=== PATIENT | female | born 1950 | race Caucasian/White ===

== ENCOUNTER 2016-10-13 11:58 | Observation (INO) | payer MEDICARE, BC ==
--- NOTE | 2016-10-12 23:19 | HP ---
HISTORY AND PHYSICAL/GASTROENTEROLOGY CONSULTATION DATE: DATE OF ADMISSION - ERCP : 10/13/16 CONSULTING PHYSICIAN: Adelaide Reina REASON FOR CONSULTATION: Abnormal LFTs and cystic duct and common bile duct stones seen on abdominal MRI. 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 She said she has had no particular questions or agenda at that time and she had routine blood work. These showed an elevation of LFTs with ALT 101 and alkaline phosphatase 311, (bilirubin was normal at 0.7) up from 8 normal values since 2011 in the new database. Further questioning turns up a twinge like pain in the right lateral costal area about twice a week which lasts only for few minutes. She specifies it is "not really a pain, just something I feel." There is no vomiting with it or fever. She says this has been present ever since her gallbladder was out. She has never really made a point of it. She did have an ultrasound a few months after her gallbladder was out and it showed a fatty liver. That was the last abdominal imaging study in the hospital database until this month. On 10/07/[address] of the abdomen and pelvis showed hepatic steatosis and mild intra and extrahepatic duct dilation. There is a question of something in the uncinate process of the pancreas. MRI done after that did not show any pancreatic, parenchymal, or ductal abnormality, but did document a long cystic duct stump remnant with stones in it and also a somewhat dilated common duct at 1.1 cm with stones in it. She states today that the twinge like pattern of discomfort continues to occur this year, but it is no different than it ever has been through the years. Followup labs showed ALT up to 189 and alkaline phosphatase 451. She has not had any fever or sleep disruption. Her appetite is good and she is struggling to control her weight. It stresses her out to be focused on this. She admits she does not want to know the figures and several notes refer to request not to be weighed PAST MEDICAL HISTORY: 1. Cholecystectomy, October [address] Matthews 2. Obesity. 3. Hepatic steatosis. 4. History of tremor. 5. Hypertension. 6. Depression. 7. Sleep apnea - April 2016, Dr. Samuels recommended CPAP. 8. Status post complete hysterectomy, November 1997 for endometriosis. 9. Laparoscopy in 1981 for infertility. 10. Basal cell cancer of the nose bilateral with revision planned, late November 2016. 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 She is . She had been planning on spending October and much of November in [place] then returning to have revisional surgery on her nose. REVIEW OF SYSTEMS: No history of syncope, palpitations, MD, pulmonary embolism , anticoagulation, hepatitis, or renal stones. She has had a hematuria workup by Dr Diego in the past. No history of pruritus or rash. She had atypical chest pain workup in 1995 including a 24-hour pH probe. PHYSICAL EXAMINATION GENERAL: She is a substantially overweight, middle-aged woman, in no distress. Deformities of the nose are evident bilaterally. VITAL SIGNS: Weight is 204, height 5 feet 6 inches, blood pressure 132/80. HEENT: Exam shows no icterus. Pupils are equal. Extraocular movements are normal. NECK: She had no adenopathy or bruits. LUNGS: Clear. HEART: Heart sounds are normal. BREAST: Deferred. PELVIC: Deferred. ABDOMEN: Abdomen is obese with small lap berenice scar seen. There is no hernia. There is no tenderness or mass. EXTREMITIES: Show no edema. LABORATORY DATA: Radiology review - she has stones in the cystic duct remnant (which inserts very low) and common duct on MRI. IMPRESSION: This 66-year-old woman at her regular physical exam 09/16/16 was noted to have a mostly cholestatic abnormality in LFTs. Her bilirubin is not elevated and albumin not affected so, she does not appear to be have any chronic liver disease or dysfunction from her fatty liver. Her ferritin and hepatitis C antibody are negative. She did have similar elevations briefly in 2008 around the time of her cholecystectomy and then things settled down and indeed in the [facility] database, she has 7 normal sets of these enzymes prior to the abrupt elevation noted on 09/16/16. She has no history of a new medication or new supplement and TRINA and mitochondrial antibody are negative. Thus with no pain the cause was quite obscure when first seen, though apparently has been found by the MRI which detected common duct stones. The subtle brief and apparently mild nature of her pain over the years is atypical, but probably does correlate with the stones seen. As the stones are appearing to develop significant obstructive properties, ERCP and clearing of the common duct is indicated. Whether or not this relieves her twinge like symptoms is unclear. Rarely, cystic duct stones stuck in that location can require an ERCP or surgical removal. The nature of ERCP with the use of anesthesia analogous to surgery , probable admission for observation, possibility of needing a stent and complications delaying prompt recovery up to including of in 1999 chance of were reviewed. She did not wish to hear verbally a long recitation of pluses or minuses, but did wish to review a diagram and outline with her . This will be reviewed further at the time of the procedure. [id number]/[facility] #: [id number] [facility] HOSPITALJordyn
[~2016-10-13 11:58] MED LIST: HYDROmorphone* 1 MG/ML 1 ML SYR ONE; Midazolam* 1 MG/ML 2 ML VIAL (2 MG) ONE; fentaNYL* 50 MCG/ML 2 ML VIAL (100 MCG VIAL) ONE
[2016-10-13 13:01] LABS: Hematocrit 40 % (35-47); Hemoglobin 13.7 g/dl (12.0-16.0); Mean Corpuscular HGB Conc 34 g/dl (31-36); Mean Corpuscular Hemoglobin 31 pg (27-31); Mean Corpuscular Volume 92 fL (80-97); Mean Platelet Volume 9 um3 (7.4-10.4); Red Blood Count 4.39 10^6/ul (4.0-5.4); Red Cell Distribution Width 13 % (10.5-15); White Blood Count 7.2 10^3/ul (3.5-10.8)
[2016-10-13 13:07] LABS: Comments Flag Yes
[2016-10-13 13:08] LABS: Add Diff/Slide Review? Manual Diff Added
[2016-10-13 13:17] LABS: Albumin 4.2 g/dL (3.2-5.2); BUN/Creatinine Ratio 15.1 (8-20); Calcium 9.5 mg/dL (8.6-10.3); EGFR African American 84.6 (>60); EGFR Non-African American 65.8 (>60); Globulin 3.1 g/dL (2-4); Total Bilirubin 0.6 mg/dL (0.2-1.0); Total Protein 7.3 g/dL (6.4-8.9)
[2016-10-13 13:32] LABS: Potassium 4.2 mmol/L (3.5-5.0)
[2016-10-13 13:33] LABS: Add Path Review? YES; Eosinophils % 4 % (0-6); Neutrophil % 57 % (38-83); RBC Morphology Normal (Normal); Reactive Lymph % 2 % (0-6)
[2016-10-13] MEDS ORDERED: Indomethacin SUPP(NF) 50 MG SUP PR ONE (13:44)
[2016-10-13] MEDS ORDERED: fentaNYL* 50 MCG/ML 2 ML VIAL (100 MCG VIAL) ONE (16:30)
[2016-10-13] MEDS ORDERED: Propofol* 10 MG/ML 20 ML BTL IV PUSH ONE (16:34)
[2016-10-13] MEDS ORDERED: Ketorolac INJ* 30 MG/ML 1 ML VIAL ONE (16:34)
[2016-10-13] MEDS ORDERED: Succinylcholine* 20 MG/ML 10 ML VIAL ONE (16:34)
[2016-10-13] MEDS ORDERED: Ondansetron INJ* 2 MG/ML VIAL ONE (16:34)
[2016-10-13] MEDS ORDERED: Lidocaine 2% PF* 5 ML VIAL ONE (16:34)
[2016-10-13] MEDS ORDERED: HYDROmorphone* 1 MG/ML 1 ML SYR ONE (16:35)
[2016-10-13] MEDS ORDERED: EPHEDrine (Pressors)* 50 MG/ML VIAL ONE (17:37)
[2016-10-13] MEDS ORDERED: VASOPRESSIN 20 UNITS/ML 1 ML VIAL ONE (17:37)
[2016-10-13] MEDS ORDERED: DiMENhydriNATE IV* 50 MG/ML VIAL IV PUSH PRN (18:44)
[2016-10-13] MEDS ORDERED: fentaNYL* 50 MCG/ML 2 ML VIAL (100 MCG VIAL) IV PRN (18:44)
[2016-10-13] MEDS ORDERED: Ondansetron INJ* 2 MG/ML VIAL IV PRN (18:44)
[2016-10-13] MEDS ORDERED: PROCHLORPERAZINE INJ 5 MG/ML 2 ML VIAL IV PRN (18:44)
--- NOTE | 2016-10-13 19:33 | RAD ---
CPT II Codes: 6045F INDICATION: Common bile duct stones TECHNIQUE: Intraoperative fluoroscopy was provided during ERCP. FINDINGS: 7 spot films depict subjective widening of the superior common bile duct (images are not calibrated an exact measurement is not possible). The lower common bile duct exhibits multiple round filling defects consistent with stones. The final image depicts placement of a stent with the loop in the second portion of the duodenum.. Fluoroscopy time: 345.9 seconds IMPRESSION: As above.
[2016-10-13] MEDS ORDERED: D5W 1/2 NS 1000 ML BAG* 1,000 ML IV SCH (23:00)
[2016-10-13] MEDS: Ibuprofen TAB* 200 MG PO PRN (23:24)
[2016-10-14] MEDS: Ibuprofen TAB* 200 MG PO PRN (05:57)
[2016-10-14 06:33] LABS: Hematocrit 39 % (35-47); Hemoglobin 13.1 g/dl (12.0-16.0); Mean Corpuscular HGB Conc 34 g/dl (31-36); Mean Corpuscular Hemoglobin 31 pg (27-31); Mean Corpuscular Volume 93 fL (80-97); Mean Platelet Volume 9 um3 (7.4-10.4); Red Cell Distribution Width 13 % (10.5-15); White Blood Count 8.7 10^3/ul (3.5-10.8)
[2016-10-14 06:58] LABS: ALT 114 U/L (7-52); AST 57 U/L (13-39); Albumin 3.9 g/dL (3.2-5.2); Alkaline Phosphatase 321 U/L (34-104); Anion Gap 10 mmol/L (2-11); BUN/Creatinine Ratio 16.3 (8-20); Blood Urea Nitrogen 13 mg/dL (6-24); CO2 Carbon Dioxide 23 mmol/L (22-32); Calcium 9.1 mg/dL (8.6-10.3); Chloride 100 mmol/L (101-111); EGFR Non-African American 71.5 (>60); Globulin 2.8 g/dL (2-4); Glucose 150 mg/dL (70-100); Lipase < 10 U/L (11.0-82.0); Potassium 4.1 mmol/L (3.5-5.0); Sodium 133 mmol/L (133-145); Total Protein 6.7 g/dL (6.4-8.9)
[2016-10-14] MEDS ORDERED: Omeprazole CAP* 20 MG PO SCH (07:30)
[2016-10-14 08:06] VITALS: BP 138/86
[2016-10-14] MEDS ORDERED: Ibuprofen TAB* 200 MG PO PRN (08:10)
[2016-10-14] MEDS ORDERED: ALPRAZolam TAB* 0.25 MG PO PRN (08:20)
[2016-10-14] MEDS ORDERED: Multivitamins/Minerals TAB PO SCH (09:00)
[2016-10-14] MEDS ORDERED: Calcium/Vitamin D TAB 250/125* TAB PO SCH (09:00)
[2016-10-14] MEDS ORDERED: FLUoxetine CAP* 10 MG PO SCH ×2 (09:00)
[2016-10-14] MEDS ORDERED: BIOTIN PO SCH (09:00)
--- NOTE | 2016-10-14 16:54 | PRO ---
DATE: 10/13/16 - ROOM #[id number] REFERRING PHYSICIAN: Dr. Adelaide Reina* PROCEDURE: ERCP with sphincterotomy and balloon and basket passage through common bile duct to extract sludge and then placement of 10-Nepali 5-cm double pigtail stent. INDICATION: This 66-year-old woman has had abnormal LFTs for 4 weeks and abdominal MRI showed stones in her cystic duct remnant and common duct. She has not had any fever or constitutional signs. See separate consult and history and physical. Informed consent has been obtained from the patient in the office with the assistance of a diagram, which she took home to discuss with her . All questions were answered in the preprocedure area after re-review of ERCP with the procedural nurses. ENDOSCOPIST: Dr. Duff ANESTHESIA: Dr. Lisa. FINDINGS: She is a [id number] overweight, middle-aged woman in no distress. She was positioned on the radiologic table in the OR while intubated and then padded. General anesthesia was induced. Esophagus - easily entered and the mucosa appeared normal and intact. The EG junction was sharp. Stomach - there were numerous polyps in the gastric fundus appearing consistent with proton pump inhibitor-induced polyps. Somewhat erythematous. The antrum was spared. The pylorus appeared normal. Duodenum - normal contours to the bulb and second through third portion. Papilla - average size and appearance. Just 2 cm under the papilla was a xanthoma accumulation providing mild bright highlight distortion to views The sphincterotome was positioned at the papilla, slightly inclined and gentle probing, entered into a ductal structure as seen on fluoro. Injection opacified both the cystic duct and common duct simultaneously with numerous filling defects. Guidewire passage went into the cystic duct. The sphincterotome was bowed and inserted or extruded in various configurations in an attempt to get the guidewire to go into the free common duct. There did seem to be some stones or possibly a stone in the cystic duct creating pressure on the common duct and the guidewire consistently went into the cystic duct. The sphincterotome also in free motion went into the cystic duct. Change was made for a balloon catheter to get a more linear and stiffer appliance and this on first insertion smoothly glided right into the common duct freely cannulating with no resistance. The guidewire was seated deeply. An attempt to bring the balloon through to see if major stones would come through, discharged some fragments of stones and some cholesterol-appearing sludge, but no major object on 3 passes. There did seem to be some resistance. Change was made for a crushing basket and this was deployed in the upper common duct/ common hepatic duct area, a couple of times and brought down slowly with wires extended jiggling hoping to capture a stone. It did not capture major stone. At that point the priority was to establish drainage with a stent and a 10-Nepali 5-cm stent was placed. It deployed nicely and was discharging contrast and bile promptly. At least 90% of the contrast had dissipated by the end of the procedure. IMPRESSION: 1. Cystic duct remnant stones, apparently pressing on the common duct. 2. Common bile duct stones - some crushing and sludge withdrawal accomplished. 3. 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 [id number]/[facility] #: [id number] [facility]AYNA[facility]
[2016-10-14] MEDS ORDERED: Propranolol LA CAP* 80 MG PO SCH (21:00)
== END 2016-10-14 10:35 | disposition home or self-care (01) ==
LOC: OR 11:58 → SSU 21:45
PROVIDERS: ADMIT Internal Medicine Gastroenterology; ATTEND Internal Medicine Gastroenterology
DX: R79.89 Other specified abnormal findings of blood chemistry (principal); I10 Essential (primary) hypertension; F32.9 Major depressive disorder, single episode, unspecified; G47.30 Sleep apnea, unspecified; Z85.828 Personal history of other malignant neoplasm of skin; E66.9 Obesity, unspecified; Z90.49 Acquired absence of other specified parts of digestive tract
CPT/HCPCS: 36415; 74328; 80053; 83690; 85025; 85060; 96374; 96375; A9270-GY; C1769; G0378; J0330; J1170; J1885; J2250; J2405; J2704; J3010

== ENCOUNTER 2020-01-30 11:46 | Observation (INO) ==
[2020-01-30] MEDS ORDERED: NS 0.9% 1000 ml BAG 1,000 ML IV ONE ×2 (12:18→13:32)
[2020-01-30 13:07] LABS: ABS Eosinophils 0.4 10^3/ul (0-0.6); ABS Lymphocytes 1.1 10^3/ul (1.0-4.8); ABS Monocytes 0.5 10^3/ul (0-0.8); Eosinophil % 6.2 %; Hematocrit 43 % (35-47); Hemoglobin 14.9 g/dL (12.0-16.0); Lymphocyte % 17.2 %; Mean Corpuscular HGB Conc 35 g/dL (31-36); Mean Corpuscular Hemoglobin 32 pg (27-31); Mean Corpuscular Volume 93 fL (80-97); Mean Platelet Volume 9.1 fL (7.4-10.4); Nucleated Red Blood Cells % 0.1; Platelet Count 157 10^3/uL (150-450); Red Blood Count 4.65 10^6 /uL (3.70-4.87); Red Cell Distribution Width 13 % (10-15); White Blood Count 6.5 10^3/uL (3.5-10.8)
[2020-01-30 13:24] LABS: ALT 51 U/L (7-52); Albumin 4.1 g/dL (3.2-5.2); Albumin/Globulin Ratio 1.2 (1-3); Alkaline Phosphatase 188 U/L (34-104); BUN/Creatinine Ratio 13.3 (8-20); Blood Urea Nitrogen 28 mg/dL (6-24); C Reactive Protein 70.31 mg/L (<8.01); CO2 Carbon Dioxide 18 mmol/L (22-32); Chloride 99 mmol/L (101-111); EGFR Non-African American 23.2 (>60); Globulin 3.4 g/dL (2-4); Glucose 113 mg/dL (70-100); Sodium 128 mmol/L (135-145); Total Protein 7.5 g/dL (6.4-8.9)
[2020-01-30 13:36] LABS: Anion Gap 11 mmol/L (2-11)
[2020-01-30 14:21] LABS: Urine Appearance Cloudy; Urine Bilirubin Negative (Negative); Urine Blood Negative (Negative); Urine Color Amber; Urine Glucose Negative (Negative); Urine Ketones Trace (Negative); Urine Nitrite Negative (Negative); Urine Protein 1+(30 mg/dL) (Negative); Urine Urobilinogen Negative (Negative)
[2020-01-30 14:26] LABS: Urine Bacteria 1+ (Absent); Urine Red Blood Cell 3+(>10/hpf) (Absent); Urine Squamous Epithelial Cell Present (Absent); Urine Transitional Epithelial Present (Absent); Urine White Blood Cell 3+(>20/hpf) (Absent)
[2020-01-30] MEDS ORDERED: cefTRIAXone 1 gm/50 mL NS BAG 1 GM/50 ML BAG IVPB ONE (16:30)
[2020-01-30] MEDS ORDERED: Enoxaparin 40 MG/0.4 ML SYR(*) SUBCUT SCH (18:00)
[2020-01-30] MEDS: NS 0.9% 1000 ml BAG 1,000 ML IV SCH (18:14)
[2020-01-30 19:22] LABS: Magnesium 1.4 mg/dL (1.9-2.7); Potassium 4.2 mmol/L (3.5-5.0)
[2020-01-31] MEDS ORDERED: Magnesium Sulfate IV 3 GM in NS 0.9% 100 ml BAG 100 ML IVPB ONE (07:32)
[2020-01-31] MEDS: NS 0.9% 1000 ml BAG 1,000 ML IV SCH (08:20)
[2020-01-31 09:45] LABS: ABS Basophils 0.1 10^3/ul (0-0.2); ABS Eosinophils 0.3 10^3/ul (0-0.6); ABS Lymphocytes 1.3 10^3/ul (1.0-4.8); ABS Monocytes 0.6 10^3/ul (0-0.8); Eosinophil % 5.4 %; Hematocrit 39 % (35-47); Hemoglobin 13.4 g/dL (12.0-16.0); Lymphocyte % 21.6 %; Mean Corpuscular HGB Conc 35 g/dL (31-36); Mean Corpuscular Hemoglobin 32 pg (27-31); Mean Corpuscular Volume 93 fL (80-97); Mean Platelet Volume 8.2 fL (7.4-10.4); Nucleated Red Blood Cells % 0.1; Platelet Count 169 10^3/uL (150-450); Red Blood Count 4.21 10^6 /uL (3.70-4.87); Red Cell Distribution Width 13 % (10-15)
[2020-01-31 10:14] LABS: BUN/Creatinine Ratio 23.5 (8-20); Calcium 8.6 mg/dL (8.6-10.3); EGFR African American 84.6 (>60); EGFR Non-African American 69.9 (>60); Potassium 3.9 mmol/L (3.5-5.0)
[2020-01-31 15:13] VITALS: BP 156/81
[2020-01-31] MEDS ORDERED: cefTRIAXone 1 gm/50 mL NS BAG 1 GM/50 ML BAG IVPB SCH (17:00)
[2020-02-01 16:01] LABS: B garinii/B afzelii PCR Negative (Negative); B mayonii PCR Negative (Negative)
[2020-02-02 18:41] LABS: Anaplasma phagocytophilum Negative (Negative); B. miyamotoi PCR, B Negative (Negative); Babesia divergens/MO-1 Negative (Negative); Babesia ducani Negative (Negative); Ehrlichia chaffeensis Negative (Negative); Ehrlichia ewingii/canis Negative (Negative); Ehrlichia muris eauclairensis Negative (Negative)
== END 2020-01-31 15:25 | disposition home or self-care (01) ==
LOC: ED 11:46 → MED 11:46
PROVIDERS: ADMIT Internal Medicine; ATTEND Internal Medicine

== ENCOUNTER 2022-09-07 18:57 | Inpatient (IN) ==
[2022-09-07 20:47] LABS: ABS Lymphocytes 0.7 10^3/ul (1.0-4.8); ABS Monocytes 0.2 10^3/ul (0-0.8); Eosinophil % 0.7 %; Hematocrit 29 % (35-47); Hemoglobin 9.8 g/dL (12.0-16.0); Lymphocyte % 51.6 %; Mean Corpuscular HGB Conc 33 g/dL (31-36); Mean Corpuscular Hemoglobin 31 pg (27-31); Mean Corpuscular Volume 91 fL (80-97); Mean Platelet Volume 7.4 fL (7.4-10.4); Nucleated Red Blood Cells % 0.1; Platelet Count 74 10^3/uL (150-450); Red Blood Count 3.22 10^6 /uL (3.70-4.87); Red Cell Distribution Width 12 % (10-15); White Blood Count 1.3 10^3/uL (3.5-10.8)
[2022-09-07 21:15] LABS: Albumin 3.9 g/dL (3.2-5.2); Albumin/Globulin Ratio 1.7 (1-3); Calcium 8.5 mg/dL (8.6-10.3); Creatinine, Serum 0.83 mg/dL (0.51-0.95); Globulin 2.3 g/dL (2-4); Potassium 3.8 mmol/L (3.5-5.0); Total Bilirubin 0.5 mg/dL (0.2-1.0); Total Protein 6.2 g/dL (6.4-8.9); eGFR CKD-EPI 74.4 (>60)
[2022-09-07 21:40] LABS: ABS Neutrophils 0.4 10^3/ul (1.5-7.7)
[2022-09-07] MEDS ORDERED: Furosemide 20 mg/2 ml IV VIAL IV SLOW PU ONE (22:10)
[2022-09-07] MEDS ORDERED: Nitro 2% OINT (Nitroglycerin) 1 INCH/PAK TOPICAL ONE (22:11)
[2022-09-07 22:19] LABS: High Sensitivity Troponin 1 Hr 11 pg/mL (<15)
[2022-09-07 22:41] LABS: Urine Appearance Clear; Urine Bilirubin Negative (Negative); Urine Blood 2+ (Negative); Urine Color Straw; Urine Glucose Negative (Negative); Urine Ketones Trace (Negative); Urine Nitrite Negative (Negative); Urine Protein 1+(30 mg/dL) (Negative); Urine Specific Gravity 1.006 (1.002-1.030); Urine Urobilinogen Negative (Negative)
[2022-09-07 22:53] LABS: Urine Bacteria Absent (Absent); Urine Red Blood Cell 3+(>10/hpf) (Absent); Urine Squamous Epithelial Cell Present (Absent); Urine White Blood Cell Trace(0-5/hpf) (Absent)
[2022-09-08] MEDS ORDERED: Ondansetron ODT 4 mg TAB 4 MG TAB PO PRN (01:10)
[2022-09-08] MEDS ORDERED: Albuterol HFA INHALER 8 gm MDI INH PRN (01:10)
[2022-09-08] MEDS ORDERED: Cefepime 2 GM in Dextrose 2 GM/50 ML BAG IV ONE (01:23)
[2022-09-08 01:50] LABS: Ferritin 488.2 ng/mL (11-307)
[2022-09-08] MEDS: Ondansetron ODT 4 mg TAB 4 MG TAB PO PRN (02:28)
[2022-09-08] MEDS ORDERED: Morphine ER 15 mg TAB ** extended release PO SCH (03:00)
[2022-09-08] MEDS ORDERED: Metoprolol Tartrate 5 mg VIAL 5 ml VIAL (1 mg/ml) IV ONE ×2 (03:41→04:25)
[2022-09-08] MEDS ORDERED: Metoprolol Tartrate 5 mg VIAL 5 ml VIAL (1 mg/ml) IV PRN (04:00)
[2022-09-08] MEDS ORDERED: Magnesium Sulfate 2 gm BAG 2 GM/50 ML BAG IVPB ONE (05:36)
[2022-09-08 05:57] LABS: Magnesium 1.5 mg/dL (1.9-2.7)
[2022-09-08] MEDS ORDERED: Enoxaparin 40 MG/0.4 ML SYR SUBCUT SCH (06:00)
[2022-09-08] MEDS ORDERED: Magnesium Sulf 4 GM/100 ML IV 4,000 MG/100 ML BAG IVPB ONE (06:14)
[2022-09-08 06:40] LABS: Hematocrit 30 % (35-47); Hemoglobin 10.1 g/dL (12.0-16.0); Mean Corpuscular HGB Conc 34 g/dL (31-36); Mean Corpuscular Hemoglobin 30 pg (27-31); Mean Corpuscular Volume 90 fL (80-97); Mean Platelet Volume 6.9 fL (7.4-10.4); Platelet Count 67 10^3/uL (150-450); Red Blood Count 3.32 10^6 /uL (3.70-4.87); Red Cell Distribution Width 12 % (10-15); White Blood Count 1.9 10^3/uL (3.5-10.8)
[2022-09-08 06:58] LABS: Albumin/Globulin Ratio 1.5 (1-3); Calcium 8.5 mg/dL (8.6-10.3); Creatinine, Serum 0.81 mg/dL (0.51-0.95); Globulin 2.6 g/dL (2-4); Potassium 3.3 mmol/L (3.5-5.0); Total Bilirubin 0.6 mg/dL (0.2-1.0); Total Protein 6.6 g/dL (6.4-8.9); eGFR CKD-EPI 76.6 (>60)
[2022-09-08 07:30] LABS: RBC Morphology Normal (Normal)
[2022-09-08] MEDS ORDERED: Iohexol 350 (CONTRAST) 500 ML MDV IV ONE (07:42)
[2022-09-08] MEDS ORDERED: Potassium EFFERVES 25 meq TAB PO ONE (07:55)
[2022-09-08] MEDS: Furosemide 40 mg/4 ml IV VIAL IV SLOW PU SCH (08:13)
[2022-09-08 08:19] LABS: Magnesium 1.4 mg/dL (1.9-2.7)
[2022-09-08] MEDS: Morphine ER 15 mg TAB ** extended release PO SCH ×2 (08:40→21:37)
[2022-09-08] MEDS: Polyethylene Glycol 3350 17 GM PACKET PO SCH (09:35)
[2022-09-08] MEDS ORDERED: Iodixanol (CONTRAST) 320 MG/ML 100 ML SDV IV ONE (09:46)
[2022-09-08] MEDS ORDERED: Cefepime 2 GM in Dextrose 2 GM/50 ML BAG IV SCH (10:30)
[2022-09-08] MEDS: Cefepime 2 GM in Dextrose 2 GM/50 ML BAG IV SCH (12:23)
[2022-09-08] MEDS: Nystatin TOP POWDER 15 GM BTL TOPICAL SCH ×2 (13:54→21:39)
[2022-09-08] MEDS: Senna TAB 8.6 mg TAB PO SCH (21:36)
[2022-09-09] MEDS: Cefepime 2 GM in Dextrose 2 GM/50 ML BAG IV SCH (00:30)
[2022-09-09 06:29] LABS: ABS Lymphocytes 1.5 10^3/ul (1.0-4.8); ABS Monocytes 0.4 10^3/ul (0-0.8); ABS Neutrophils 1.6 10^3/ul (1.5-7.7); Eosinophil % 0.7 %; Hematocrit 27 % (35-47); Hemoglobin 9.3 g/dL (12.0-16.0); Mean Corpuscular HGB Conc 35 g/dL (31-36); Mean Corpuscular Hemoglobin 31 pg (27-31); Mean Corpuscular Volume 89 fL (80-97); Nucleated Red Blood Cells % 0.1; Platelet Count 65 10^3/uL (150-450); Red Cell Distribution Width 12 % (10-15); White Blood Count 3.5 10^3/uL (3.5-10.8)
[2022-09-09 06:43] LABS: Calcium 8.2 mg/dL (8.6-10.3); Creatinine, Serum 1.09 mg/dL (0.51-0.95); Potassium 3.2 mmol/L (3.5-5.0); eGFR CKD-EPI 53.6 (>60)
[2022-09-09 07:54] LABS: Magnesium 2.4 mg/dL (1.9-2.7)
[2022-09-09] MEDS: Furosemide 40 mg/4 ml IV VIAL IV SLOW PU SCH (08:40)
[2022-09-09] MEDS: Potassium EFFERVES 25 meq TAB PO ONE ×2 (08:40→12:01)
[2022-09-09] MEDS: Polyethylene Glycol 3350 17 GM PACKET PO SCH (08:40)
[2022-09-09] MEDS: Morphine ER 15 mg TAB ** extended release PO SCH ×2 (08:42→20:14)
[2022-09-09] MEDS: Nystatin TOP POWDER 15 GM BTL TOPICAL SCH ×2 (08:46→20:19)
[2022-09-09] MEDS ORDERED: Potassium Chlor 20 meq TAB.ER PO ONE (11:58)
[2022-09-09] MEDS ORDERED: KCL 20 MEQ/100 ML IVPREMIX 20 MEQ/100 ML BAG IV ONE (16:32)
[2022-09-09] MEDS: Ondansetron ODT 4 mg TAB 4 MG TAB PO PRN (19:29)
[2022-09-09] MEDS: Senna TAB 8.6 mg TAB PO SCH (20:12)
[2022-09-10 06:50] LABS: Hematocrit 29 % (35-47); Mean Corpuscular HGB Conc 35 g/dL (31-36); Mean Corpuscular Hemoglobin 31 pg (27-31); Mean Corpuscular Volume 90 fL (80-97); Mean Platelet Volume 7.7 fL (7.4-10.4); Platelet Count 101 10^3/uL (150-450); Red Cell Distribution Width 12 % (10-15); White Blood Count 3.7 10^3/uL (3.5-10.8)
[2022-09-10 07:09] LABS: Calcium 8.3 mg/dL (8.6-10.3); Creatinine, Serum 1.08 mg/dL (0.51-0.95); Magnesium 2.1 mg/dL (1.9-2.7); Potassium 3.4 mmol/L (3.5-5.0); eGFR CKD-EPI 54.2 (>60)
[2022-09-10] MEDS: Ondansetron ODT 4 mg TAB 4 MG TAB PO PRN (08:07)
[2022-09-10 10:31] VITALS: BP 103/64
[2022-09-10] MEDS: Polyethylene Glycol 3350 17 GM PACKET PO SCH (11:34)
[2022-09-10] MEDS: Morphine ER 15 mg TAB ** extended release PO SCH (11:41)
[2022-09-10] MEDS: KCL 20 MEQ/100 ML IVPREMIX 20 MEQ/100 ML BAG IV SCH ×2 (11:43→13:29)
[2022-09-10] MEDS ORDERED: Potassium Chloride LIQUID 20 MEQ/15 ML LIQUID PO ONE (11:58)
[2022-09-10] MEDS: Nystatin TOP POWDER 15 GM BTL TOPICAL SCH (13:27)
== END 2022-09-10 14:20 | disposition home or self-care (01) | DRG 304 ==
LOC: ED 18:57 → EDHOLD 09-08 01:04 → SUATTDRO 09-08 01:04 → MEDTELE 09-08 06:10
PROVIDERS: ADMIT Student in an Organized Health Care Education/Training Program; ATTEND Internal Medicine

== ENCOUNTER 2022-12-01 11:37 | Observation (INO) ==
[2022-12-01 12:16] LABS: ABS Basophils 0.1 10^3/uL (0.0-0.1); ABS Eosinophils 0.1 10^3/uL (0.0-0.5); ABS Lymphocytes 0.8 10^3/uL (1.0-4.8); ABS Monocytes 0.7 10^3/uL (0.0-0.9); ABS Neutrophils 8.2 10^3/uL (1.5-7.6); ABS Nucleated RBC 0.01 10^3/ul; Eosinophil % 0.6 %; Hematocrit 34.1 % (35-45); Hemoglobin 11.7 g/dL (11.5-14.3); Lymphocyte % 8.6 %; Mean Corpuscular Hemoglobin 30.4 pg (27-33); Mean Corpuscular Hgb Conc 34.2 g/dL (31-36); Mean Platelet Volume 7.8 fL (7.5-11.2); Nucleated Red Blood Cells % 0.1 /100 WBC (0.0-0.4); Platelet Count 317 10^3/uL (150-450); Red Blood Count 3.84 10^6/uL (3.63-4.92); Red Cell Distribution Width 13.9 % (12-17); White Blood Count 9.9 10^3/uL (3.8-11.8)
[2022-12-01 12:26] LABS: Albumin 3.5 g/dL (3.2-5.2); Calcium 8.8 mg/dL (8.6-10.3); Magnesium 1.5 mg/dL (1.9-2.7); Potassium 3.6 mmol/L (3.5-5.0); Total Bilirubin 0.4 mg/dL (0.2-1.0)
[2022-12-01 12:32] LABS: Albumin/Globulin Ratio 1.5 (1-3); Creatinine, Serum 1.06 mg/dL (0.51-0.95); Globulin 2.4 g/dL (2-4); Total Protein 5.9 g/dL (6.4-8.9); eGFR CKD-EPI 55.5 (>60)
[2022-12-01] MEDS ORDERED: Magnesium Sulf 4 GM/100 ML IV 4,000 MG/100 ML BAG IVPB ONE (13:51)
[2022-12-01] MEDS ORDERED: Metoprolol Tartrate 5 mg VIAL 5 ml VIAL (1 mg/ml) IV PRN (14:23)
[2022-12-01] MEDS ORDERED: Senna TAB 8.6 mg TAB PO PRN (14:33)
[2022-12-01] MEDS ORDERED: Ondansetron ODT 4 mg TAB 4 MG TAB PO PRN (16:04)
[2022-12-01] MEDS: Morphine ER 15 mg TAB ** extended release PO SCH (20:45)
[2022-12-01] MEDS: NS 0.9% 1000 ml BAG 1,000 ML IV SCH (20:49)
[2022-12-02 06:31] LABS: ABS Eosinophils 0.1 10^3/uL (0.0-0.5); ABS Lymphocytes 1.7 10^3/uL (1.0-4.8); ABS Monocytes 0.7 10^3/uL (0.0-0.9); ABS Neutrophils 6.2 10^3/uL (1.5-7.6); ABS Nucleated RBC 0.01 10^3/ul; Eosinophil % 1.3 %; Hematocrit 33.8 % (35-45); Hemoglobin 11.5 g/dL (11.5-14.3); Lymphocyte % 19.3 %; Mean Corpuscular Hemoglobin 30.6 pg (27-33); Mean Corpuscular Hgb Conc 34.2 g/dL (31-36); Mean Corpuscular Volume 89.5 fL (80-97); Mean Platelet Volume 8.1 fL (7.5-11.2); Nucleated Red Blood Cells % 0.1 /100 WBC (0.0-0.4); Platelet Count 297 10^3/uL (150-450); Red Blood Count 3.77 10^6/uL (3.63-4.92); Red Cell Distribution Width 14.2 % (12-17); White Blood Count 8.7 10^3/uL (3.8-11.8)
[2022-12-02 06:47] LABS: Albumin 3.3 g/dL (3.2-5.2); Albumin/Globulin Ratio 1.4 (1-3); Calcium 8.8 mg/dL (8.6-10.3); Creatinine, Serum 0.88 mg/dL (0.51-0.95); Globulin 2.3 g/dL (2-4); Magnesium 2.2 mg/dL (1.9-2.7); Potassium 3.8 mmol/L (3.5-5.0); Total Bilirubin 0.4 mg/dL (0.2-1.0); Total Protein 5.6 g/dL (6.4-8.9); eGFR CKD-EPI 69.3 (>60)
[2022-12-02] MEDS ORDERED: Potassium Chlor 20 meq TAB.ER PO ONE (08:36)
[2022-12-02] MEDS: Multivitamins/Minerals TAB PO SCH (08:58)
[2022-12-02] MEDS: Morphine ER 15 mg TAB ** extended release PO SCH ×2 (09:04→20:27)
[2022-12-02] MEDS: Polyethylene Glycol 3350 17 GM PACKET PO SCH (09:06)
[2022-12-02] MEDS: CMCS: Raloxifene 60 mg TAB (NF) PO SCH (09:09)
[2022-12-02] MEDS: NS 0.9% 1000 ml BAG 1,000 ML IV SCH (17:16)
[2022-12-03] MEDS ORDERED: NS 0.9% 1000 ml BAG 1,000 ML IV ONE (07:00)
[2022-12-03] MEDS: Morphine ER 15 mg TAB ** extended release PO SCH (07:34)
[2022-12-03] MEDS ORDERED: Flumazenil 0.5 mg/5 ml 0.1 MG/ML 5 ml VIAL ONE (08:07)
[2022-12-03] MEDS ORDERED: fentaNYL 100 mcg/2 ml 50 MCG/ML VIAL ONE (08:07)
[2022-12-03] MEDS ORDERED: Midazolam 5 mg/5 ml VIAL 1 mg/ml 5 ml VIAL (5 mg) ONE (08:07)
[2022-12-03] MEDS ORDERED: Naloxone 0.4 mg VIAL 0.4 mg/ml 1 ml VIAL ONE (08:07)
[2022-12-03] MEDS ORDERED: fentaNYL 100 mcg/2 ml 50 MCG/ML VIAL IV SLOW PU ONE (08:40)
[2022-12-03] MEDS ORDERED: Midazolam 10 mg/10 ml VIAL 1 mg/ml 10 ml VIAL (10 mg) IV SLOW PU ONE (08:40)
[2022-12-03] MEDS: CMCS: Raloxifene 60 mg TAB (NF) PO SCH (12:12)
[2022-12-03] MEDS: Multivitamins/Minerals TAB PO SCH (12:15)
[2022-12-03] MEDS: Polyethylene Glycol 3350 17 GM PACKET PO SCH (12:16)
[2022-12-03 13:04] VITALS: BP 103/64
== END 2022-12-03 16:05 | disposition home or self-care (01) ==
LOC: CHOA 11:37 → SUATTDRO 14:24 → INTOOBSV 15:56 → MEDTELE 15:56
PROVIDERS: ADMIT Internal Medicine Hematology & Oncology; ATTEND Internal Medicine